=== PATIENT | male | born 1960 | race Caucasian/White ===

== ENCOUNTER 2024-07-30 14:56 | Inpatient (IN) | payer OTHER, MEDICAID, SELFPAY ==
[2024-07-30] VITALS (22 sets, daily range): BP systolic 104–144; BP diastolic 67–82; PULSE 93–107; TEMP 36.8–37.7; O2SAT 91–99; BMI 22.5; BMI 21.5
--- NOTE | 2024-07-30 13:45 | ECG_ITS ---
[facility] Test Date: 2024-07-30 Pat Name: WENDY TRINIDAD Department: Room: [facility] Gender: Male Regulatory Affairs Coordinator: : 1960 Requested By: [id number] Order Number: [id number] Reading MD: ERICK JACKSON M.D. Measurements Intervals [place] Rate: 99 P: 88 MT: 132 QRS: 72 QRSD: 96 T: 79 QT: 366 QTc: 422 Interpretive Statements 1100 Sinus rhythm 9110 normal ECG No previous ECG available for comparison Electronically Signed On 07-31-2024 16:57:58 EDT by ERICK JACKSON M.D.
--- NOTE | 2024-07-30 15:48 | ED.GENADUL1 ---
HPI HPI - General Adult General Chief complaint: Skin/Abscess/Foreign Body Time Seen by Provider: 07/30/24 14:59 Source: patient Mode of arrival: ambulance Limitations: no limitations History of Present Illness HPI narrative: Patient presents to ED for evaluation of possible altered mental status and new sacral decubitus wounds. Patient was apparently slightly altered this morning at 10 AM and they thought he may get better but he did not seem to be getting any better. They said the nurse practitioner also noticed new wounds on the buttock area and they were concerned for infection. Patient was sent over for further evaluation. Upon arrival patient is alert and oriented answering questions appropriately for the most part. Patient does have a history of lung cancer. Patient denies specific chest pain shortness of breath or abdominal pain but just states in general he has pain all over. He feels warm but he does not have a documented fever here. We did check twice. He states he feels chilled like he is cold. Patient has an indwelling Altman catheter. Related Data Home Medications ?Medication ?Instructions ?Recorded ?Confirmed ascorbic acid (vitamin C) 500 mg 500 mg PO DAILY 07/30/24 07/30/24 chewable tablet (Acerola C) cholecalciferol (vitamin D3) 10 10 mcg PO DAILY 07/30/24 07/30/24 mcg (400 unit) tablet (Delta D3) enoxaparin 40 mg/0.4 mL 40 mg subcut DAILY 07/30/24 07/30/24 subcutaneous syringe (Lovenox) gabapentin 300 mg capsule 300 mg PO TID 07/30/24 07/30/24 hydrocodone 5 mg-acetaminophen 325 1 tab PO QID PRN pain 07/30/24 07/30/24 mg tablet insulin glargine-yfgn 100 unit/mL 40 unit subcut DAILY 07/30/24 07/30/24 (3 mL) subcutaneous pen (Semglee (insulin glargine-yfgn) Pen) insulin lispro 100 unit/mL 1 sliding scale dose subcut 07/30/24 07/30/24 subcutaneous pen (Admelog SoloStar USEASDIRECTD U-100 Insulin lispro) ipratropium 0.5 mg-albuterol 3 mg 3 ml inhalation QID PRN shortness 07/30/24 07/30/24 (2.5 mg base)/3 mL nebulization of breath soln lidocaine 5 % topical patch 1 patch topical BID 07/30/24 07/30/24 (DermacinRx Lidocan) magnesium 200 mg tablet 400 mg PO BID 07/30/24 07/30/24 metformin 500 mg tablet 500 mg PO BID 07/30/24 07/30/24 nicotine 14 mg/24 hr daily 1 patch transdermal DAILY 07/30/24 07/30/24 transdermal patch (Nicoderm CQ) polyethylene glycol 3350 17 17 g PO QDAY PRN constipation 07/30/24 07/30/24 gram/dose oral powder (ClearLax) tamsulosin 0.4 mg capsule (Flomax) 0.4 mg PO DAILY 07/30/24 07/30/24 tizanidine 4 mg capsule 4 mg PO Q6H PRN muscle spasticity 07/30/24 07/30/24 Allergies Allergy/AdvReac Type Severity Reaction Status Date / Time No Known Drug Allergies Allergy Verified 07/30/24 15:00 Opioid HPI Opioid Management Most Recent Opioid Data: No Data to Display Review of Systems ROS Status of ROS 10 or more systems reviewed and unremarkable except as noted in history and below PFSH PFSH Social History Little interest or pleasure in doing things: not at all Feeling down, depressed, or hopeless: not at all Exam Narrative Exam Narrative: Time Seen: [] Vital Signs: [Per nurse's notes.] General: [Alert] Skin: [Warm, dry, no rash.] Sacral decubitus ulcer and 2 other wounds on each buttock just slightly lower than the main sacral decubitus ulcer. Stage 3 Head: [Normocephalic, atraumatic.] Neck: [Supple, trachea midline.] Eye: [Pupils are equal, round and reactive to light, extraocular movements are intact, normal conjunctiva.] Ears, nose, mouth and throat: oral mucosa moist. Cardiovascular: [Regular rate and rhythm, no murmur.] Respiratory: [Lungs are clear to auscultation, respirations are non-labored, breath sounds are equal.] Gastrointestinal: [Soft, nontender, non distended, normal bowel sounds.] Altman catheter in place MSK: 5 out of 5 muscle strength x 4 extremities no calf pain or edema Psychiatric: [Cooperative, appropriate mood & affect.] Neurological: [Alert and oriented to person, place, time, and situation, no focal neurological deficit observed.] Constitutional Vital Signs, click to edit/add: Last Vital Signs Temp 98.3 F 07/30/24 14:56 Pulse 99 H 07/30/24 14:56 Resp 18 07/30/24 14:56 BP 121/72 07/30/24 14:56 Pulse Ox 97 07/30/24 14:56 O2 Del Method Room Air 07/30/24 14:56 Course Vital Signs Vital signs: Vital Signs Temperature 98.3 F 07/30/24 14:56 Pulse Rate 99 H 07/30/24 14:56 Respiratory Rate 18 07/30/24 14:56 Blood Pressure 121/72 07/30/24 14:56 Pulse Oximetry 97 07/30/24 14:56 Oxygen Delivery Method Room Air 07/30/24 14:56 Temperature 98.3 F 07/30/24 14:56 Pulse Rate 99 H 07/30/24 14:56 Respiratory Rate 18 07/30/24 14:56 Blood Pressure 121/72 07/30/24 14:56 Pulse Oximetry 97 07/30/24 14:56 Oxygen Delivery Method Room Air 07/30/24 14:56 Medical Decision Making MDM Narrative Medical decision making narrative: Patient has not elevated lactate at 2.9. He also has gas seen in the sacral tissue area. Patient has no osteomyelitis on the sacral bone. He does have the sacral decubitus ulcer with gas extension into the tissues. Patient will need to be admitted for IV antibiotics and further care of his wound. Patient was given vancomycin IV in ED. Dr. Woods will admit the patient for further care. Patient is comfortable with care plan for admission. Differential Diagnosis Differential Diagnosis: Sepsis, sacral decubitus infection abscess, UTI Medical Records Medical records reviewed: Yes I reviewed the patient's medical records Lab Data Lab results reviewed: Yes I reviewed the patient's lab results Labs: Lab Results 07/30/24 07/30/24 Range/Units 15:00 16:10 WBC 5.4 (4.0-11.0) 10^3/uL RBC 3.44 L (4.70-6.10) 10^6/uL Hgb 10.6 L (14.0-18.0) g/dL Hct 30.9 L (42.0-54.0) % MCV 89.8 (80.0-94.0) fL MCH 30.8 (25.9-34.0) pg MCHC 34.3 (29.9-35.2) g/dL RDW 14.1 (11.0-15.0) % Plt Count 160 (150-450) 10^3/uL MPV 9.2 L (9.5-13.5) fL Neut % (Auto) 76.7 H (43.0-75.0) % Lymph % (Auto) 14.4 L (20.5-60.0) % [place] % (Auto) 5.7 (1.7-12.0) % Eos % (Auto) 0.2 L (0.9-7.0) % Baso % (Auto) 0.2 (0.2-2.0) % Neut # (Auto) 4.2 (1.4-6.5) 10^3/uL Lymph # (Auto) 0.8 L (1.2-3.8) 10^3/uL [place] # (Auto) 0.3 (0.3-0.8) 10^3/uL Eos # (Auto) 0.0 (0.0-0.7) 10^3/uL Baso # (Auto) 0.0 (0.0-0.1) 10^3/uL Abs Immat Gran (auto) 0.15 H (0.00-0.03) 10^3/uL Imm/Tot Granulo (auto) 2.8 H (0.0-0.5) % Sodium 133 L (136-145) mmol/L Potassium 4.2 (3.5-5.1) mmol/L Chloride 95 L (98-107) mmol/L Carbon Dioxide 32.7 H (21.0-32.0) mmol/L Anion Gap 9.5 BUN 18.0 (7.0-18.0) mg/dL Creatinine 0.51 L (0.70-1.30) mg/dL Est GFR ( Amer) >60 (>=60 mL/min/1.73m^2) Est GFR (Non-Af Amer) >60 (>=60 mL/min/1.73m^2) BUN/Creatinine Ratio 35.3 Glucose 177 H (74-106) mg/dL Lactate 2.9 H* (0.4-2.0) mmol/L Calcium 8.2 L (8.5-10.1) mg/dL Total Bilirubin 0.6 (0.2-1.0) mg/dL AST 21 (15-37) U/L ALT 51 (16-63) U/L Alkaline Phosphatase 90 (46-116) U/L Total Protein 5.3 L (6.4-8.2) g/dL Albumin 1.6 L (3.4-5.0) g/dL Globulin 3.7 g/dL Albumin/Globulin Ratio 0.4 Urine Color Yellow (YELLOW) Urine Clarity Sl cloudy (CLEAR) Urine pH 6.0 (5.0-9.0) Ur Specific [place] >=1.030 A (1.005-1.025) Urine Protein 100 A (NEG/TRACE) mg/dL Urine Glucose (UA) Negative (NEGATIVE) mg/dL Urine Ketones Negative (NEGATIVE) mg/dL Urine Occult Blood Large A (NEGATIVE) Urine Nitrite Positive A (NEGATIVE) Urine Bilirubin Negative (NEGATIVE) Urine Urobilinogen 1.0 (0.2-1.0) EU/dL Ur Leukocyte Esterase Small A (NEGATIVE) Urine RBC 2-5 A (0-2) #/HPF Urine WBC 50-75 A (NONE SEEN) #/HPF Ur Squamous Epith Cells Few A (NONE/RARE) #/LPF Ur Transition Epith Cell Rare A (NONE SEEN) #/LPF Urine Crystals None seen (None Seen) #/HPF Urine Bacteria Large A (NONE SEEN) #/HPF Urine Casts None seen (NONE SEEN) #/LPF Urine Mucus Trace A (NONE SEEN) Ur Culture Indicated? Yes-[facility] [place] Imaging Data CT scan - abdomen: Attestation: I have reviewed the pertinent imaging results. Discharge Plan Discharge Chief Complaint: Skin/Abscess/Foreign Body Time of Disposition Decision: 17:19 Prescriptions / Home Meds: No Action tamsulosin [Flomax] 0.4 mg capsule 0.4 mg PO DAILY gabapentin 300 mg capsule 300 mg PO TID hydrocodone-acetaminophen 5-325 mg tablet 1 tab PO QID PRN (Reason: pain) insulin lispro [Admelog SoloStar U-100 Insulin] 100 unit/mL insulin pen 1 sliding scale dose subcut USEASDIRECTD ipratropium-albuterol 0.5 mg-3 mg(2.5 mg base)/3 mL solution for nebulization 3 ml inhalation QID PRN (Reason: shortness of breath) lidocaine [DermacinRx Lidocan] 5 % adhesive patch,medicated 1 patch topical BID Rx Instructions: leave on most painful area for up to 12 hrs enoxaparin [Lovenox] 40 mg/0.4 mL syringe 40 mg subcut DAILY magnesium 200 mg tablet 400 mg PO BID metformin 500 mg tablet 500 mg PO BID nicotine [Nicoderm CQ] 14 mg/24 hr patch 24 hour 1 patch transdermal DAILY polyethylene glycol 3350 [ClearLax] 17 gram/dose powder 17 g PO QDAY PRN (Reason: constipation) insulin glargine-yfgn [Semglee(insulin glarg-yfgn)Pen] 100 unit/mL (3 mL) insulin pen 40 unit subcut DAILY tizanidine 4 mg capsule 4 mg PO Q6H PRN (Reason: muscle spasticity) Rx Instructions: do not exceed 3 doses per 24 hrs ascorbic acid (vitamin C) [Acerola C] 500 mg tablet,chewable 500 mg PO DAILY cholecalciferol (vitamin D3) [Delta D3] 10 mcg (400 unit) tablet 10 mcg PO DAILY Print Language: [place]
[2024-07-30] MEDS: VANCOMYCIN HCL 1,000 MG in 0.9 % SODIUM CHLORIDE 250 ML 250 MG IV (16:00)
[2024-07-30 16:06] LABS: Basophils Percent Auto 0.2 % (0.2-2.0); Eosinophils Percent Auto 0.2 % (0.9-7.0); Hematocrit 30.9 % (42.0-54.0); Hemoglobin 10.6 g/dL (14.0-18.0); Immature Granulocytes Abs Auto 0.15 10^3/uL (0.00-0.03); Immature Granulocytes Pct Auto 2.8 % (0.0-0.5); Lymphocytes Absolute Auto 0.8 10^3/uL (1.2-3.8); Lymphocytes Percent Auto 14.4 % (20.5-60.0); Mean Corpuscular HGB Conc 34.3 g/dL (29.9-35.2); Mean Corpuscular Hemoglobin 30.8 pg (25.9-34.0); Mean Corpuscular Volume 89.8 fL (80.0-94.0); Mean Platelet Volume 9.2 fL (9.5-13.5); Monocytes Absolute Auto 0.3 10^3/uL (0.3-0.8); Monocytes Percent Auto 5.7 % (1.7-12.0); Neutrophils Absolute Auto 4.2 10^3/uL (1.4-6.5); Neutrophils Percent Auto 76.7 % (43.0-75.0); Platelet Count 160 10^3/uL (150-450); Red Blood Count 3.44 10^6/uL (4.70-6.10); Red Cell Distribution Width 14.1 % (11.0-15.0); White Blood Count 5.4 10^3/uL (4.0-11.0)
[2024-07-30 16:18] LABS: Alanine Aminotransferase 51 U/L (16-63); Albumin Globulin Ratio 0.4; Albumin Level 1.6 g/dL (3.4-5.0); Alkaline Phosphatase 90 U/L (46-116); Anion Gap 9.5; Aspartate Amino Transferase 21 U/L (15-37); BUN Creatinine Ratio 35.3; Bilirubin Total 0.6 mg/dL (0.2-1.0); Calcium 8.2 mg/dL (8.5-10.1); Carbon Dioxide 32.7 mmol/L (21.0-32.0); Chloride 95 mmol/L (98-107); Estimated GFR (African America >60 (>=60 mL/min/1.73m^2); Estimated GFR (Non-African Ame >60 (>=60 mL/min/1.73m^2); Globulin 3.7 g/dL; Glucose 177 mg/dL (74-106); Potassium 4.2 mmol/L (3.5-5.1); Sodium 133 mmol/L (136-145); Total Protein 5.3 g/dL (6.4-8.2)
[2024-07-30 16:19] LABS: Bilirubin Urine NEGATIVE (NEGATIVE); Blood Urine LARGE (NEGATIVE); Clarity Urine SL CLOUDY (CLEAR); Color Urine YELLOW (YELLOW); Glucose Urine UA NEGATIVE (NEGATIVE); Ketones Urine NEGATIVE (NEGATIVE); Leukocyte Esterase Urine SMALL (NEGATIVE); Nitrite Urine POSITIVE (NEGATIVE); Protein Urine 100 mg/dL (NEG/TRACE); Specific Gravity Urine >=1.030 (1.005-1.025)
[2024-07-30 16:28] LABS: Urine Microscopic Indicated YES
[2024-07-30 16:30] LABS: Bacteria Urine LARGE #/HPF (NONE SEEN); Mucus Urine TRACE (NONE SEEN); WBC Urine 50-75 #/HPF (NONE SEEN)
[2024-07-30 16:31] LABS: Cast Seen? NONE SEEN #/LPF (NONE SEEN); Crystals Seen? None Seen #/HPF (None Seen); Squamous Epithelial Cell Urine FEW #/LPF (NONE/RARE); Transitional Epi Cells Urine RARE #/LPF (NONE SEEN); Urine Culture Indicated YES-FRMC
[2024-07-30 16:37] LABS: Lactate/Lactic Acid 2.9 mmol/L (0.4-2.0)
--- NOTE | 2024-07-30 18:01 | PHOTOS ---
left lower buttock
--- NOTE | 2024-07-30 18:02 | RESP.PFTBD ---
Pulmonary Function Tests Test Type: Spirometry Predicted Measured %Predicted Measured Post-Bronchodilator % Predicted Post-Bronchodilator % Change FVC FEV1 FEV1/FVC FEV 25% FEV 50% FEV 75% FEV 25 - 75% PEF FIVC Lung Volumes Predicted Measured % Predicted Measured Post-Bronchodilator % Pedicted Post-Bronchodilator % Change VC TLC RV RV/TLC FRC PL FRC N2 ERV IC Airway Resistance Predicted Measured % Predicted Raw Total sGAW Diffusion Predicted Measured % Predicted DLCO DL Adj DLCO/VA DL/VA Adj
[2024-07-30 18:31] LABS: C Reactive Protein 10.78 mg/dL (<=0.50)
[2024-07-30 18:37] LABS: Lactate/Lactic Acid 1.4 mmol/L (0.4-2.0)
[2024-07-30 18:43] LABS: Erythrocyte Sedimentation Rate 53 mm/hr (<=20)
--- NOTE | 2024-07-30 20:36 | P.HP_ITS ---
HPI H&P: HPI History of Present Illness Chief complaint: INFECTED SACRAL DECUB, AMS, WEAKNESS, UTI Narrative: Presented to the emergency room from his rehabilitation facility for increasing fatigue and lethargy some altered mental status, in ER found to have sacral decubitus with air infiltration and evidence for sepsis Opioid HPI Opioid Management Most Recent Pain and Opioid Data: Last ORT Total Score 0 07/30/24 18:12 07/30/24 Last ORT Risk Category Low Risk 07/30/24 18:12 07/30/24 Review of Systems ROS Status of ROS 10 or more systems reviewed and unremark able except as noted in history and below [facility] Medical History (Updated 07/30/24 @ 18:50 by Ghazal Garduno) Depression ?F32.A - Depression, unspecified (ICD-10) Neuropathy ?G62.9 - Polyneuropathy, unspecified (ICD-10) Urinary retention ?R33.9 - Retention of urine, unspecified (ICD-10) Diabetes ?E11.9 - Type 2 diabetes mellitus without complications (ICD-10) Family History (Updated 07/30/24 @ 18:45 by Ghazal Garduno) Mother Family history of CHF (congestive heart failure) Family history of cancer Social History (Updated 07/30/24 @ 18:46 by Ghazal Garduno) Within the past year, how often did you have a drink containing alcohol: never Score interpretation: A score less than 4 is consistent with normal alcohol consumption. Smoking status: Former smoker Non-prescribed substance use: denies use Previous occupational history: disabled Highest level of school completed/degree received: 7th grade Are you now , , , , never or living with a partner: never Little interest or pleasure in doing things: not at all Feeling down, depressed, or hopeless: not at all Meds Home Medications and Allergies Home Medications ?Medication ?Instructions ?Recorded ?Confirmed ?Type ascorbic acid (vitamin C) 500 mg 500 mg PO DAILY 07/30/24 07/30/24 History chewable tablet (Acerola C) cholecalciferol (vitamin D3) 10 10 mcg PO DAILY 07/30/24 07/30/24 History mcg (400 unit) tablet (Delta D3) duloxetine 60 mg capsule,delayed 60 mg PO .QD 07/30/24 07/30/24 History release enoxaparin 40 mg/0.4 mL 40 mg subcut DAILY 07/30/24 07/30/24 History subcutaneous syringe (Lovenox) gabapentin 300 mg capsule 300 mg PO TID 07/30/24 07/30/24 History hydrocodone 5 mg-acetaminophen 325 1 tab PO QID PRN pain 07/30/24 07/30/24 History mg tablet insulin glargine-yfgn 100 unit/mL 40 unit subcut DAILY 07/30/24 07/30/24 History (3 mL) subcutaneous pen (Semglee (insulin glargine-yfgn) Pen) insulin lispro 100 unit/mL 1 sliding scale dose subcut 07/30/24 07/30/24 History subcutaneous pen (Admelog SoloStar USEASDIRECTD U-100 Insulin lispro) ipratropium 0.5 mg-albuterol 3 mg 3 ml inhalation QID PRN shortness 07/30/24 07/30/24 History (2.5 mg base)/3 mL nebulization of breath soln lidocaine 5 % topical patch 1 patch topical BID 07/30/24 07/30/24 History (DermacinRx Lidocan) magnesium 200 mg tablet 400 mg PO BID 07/30/24 07/30/24 History metformin 500 mg tablet 500 mg PO BID 07/30/24 07/30/24 History nicotine 14 mg/24 hr daily 1 patch transdermal DAILY 07/30/24 07/30/24 History transdermal patch (Nicoderm CQ) polyethylene glycol 3350 17 17 g PO QDAY PRN constipation 07/30/24 07/30/24 History gram/dose oral powder (ClearLax) tamsulosin 0.4 mg capsule (Flomax) 0.4 mg PO DAILY 07/30/24 07/30/24 History tizanidine 4 mg capsule 4 mg PO Q6H PRN muscle spasticity 07/30/24 07/30/24 History Allergies Allergy/AdvReac Type Severity Reaction Status Date / Time No Known Drug Allergies Allergy Verified 07/30/24 15:00 Exam Constitutional Vital Signs, click to edit/add: Last Vital Signs Temp 99.9 F 07/30/24 20:30 Pulse 107 H 07/30/24 20:30 Resp 19 07/30/24 20:30 BP 121/67 07/30/24 20:30 Pulse Ox 93 L 07/30/24 20:30 O2 Del Method Room Air 07/30/24 20:30 Documenting provider has reviewed patient's vital signs: yes Common normals: no apparent distress Chest Common normals: inspection of chest normal Respiratory Common normals: normal respiratory effort, no retractions and clear to auscultation bilaterally Cardio Common normals: regular rate and regular rhythm Back & Pelvis Other: Sacral decubitus, see pictures Neuro Common normals: oriented x3, CN's II-XII intact bilaterally, moves all extremities and no focal motor deficits Other: Right-sided facial weakness secondary to previous skull fracture Results Labs Labs: Short CBC 07/30/24 Range/Units 15:00 WBC 5.4 (4.0-11.0) 10^3/uL Hgb 10.6 L (14.0-18.0) g/dL Hct 30.9 L (42.0-54.0) % Plt Count 160 (150-450) 10^3/uL BMP 07/30/24 15:00 Sodium 133 L Potassium 4.2 Chloride 95 L Carbon Dioxide 32.7 H BUN 18.0 Creatinine 0.51 L Glucose 177 H Calcium 8.2 L Liver Function 07/30/24 Range/Units 15:00 Total Bilirubin 0.6 (0.2-1.0) mg/dL AST 21 (15-37) U/L ALT 51 (16-63) U/L Alkaline Phosphatase 90 (46-116) U/L Albumin 1.6 L (3.4-5.0) g/dL Urine 07/30/24 Range/Units 16:10 Urine Color Yellow (YELLOW) Urine Clarity Sl cloudy (CLEAR) Urine pH 6.0 (5.0-9.0) Ur Specific [place] >=1.030 A (1.005-1.025) Urine Protein 100 A (NEG/TRACE) mg/dL Urine Glucose (UA) Negative (NEGATIVE) mg/dL Assessment and Plan Assessment and Plan (1) AMS (altered mental status): (2) Acute UTI: (3) Decubitus ulcer of sacral region, stage 3: (4) Cellulitis: (5) Neuropathy: (6) Depression: (7) Diabetes: Plan Admission findings: Sinus tachycardia, respiratory distress, normal white blood cell count but left shift consistent with bacterial process and lactic acidosis consistent with severe sepsis secondary to acute UTI and decubitus with subcutaneous air as a complication of diabetes mellitus and recent treatment for lung cancer resulting in immune deficiency Severe sepsis secondary to UTI and sacral decubitus with air infiltration, complication of diabetes and immune deficiency from lung cancer [id number]-tzrbl-[id number] antibiotics, blood cultures and wound cultures and urine cultures pending Poorly controlled diabetes mellitus-insulin sliding scale Altered mental status secondary to above-monitor Neuropathic pain-continue with home medications COPD-continue with aerosol treatments Hypomagnesemia-supplement BPH-continue with home medications Admission status: Patient admitted with severe sepsis secondary to UTI and sacral decubitus with evidence for cellulitis with a infiltration complication of diabetes mellitus as well as immune deficiency from lung cancer treatment, medically necessary treatment will span 2 midnights. Inpatient status Urinary Catheter Management Urinary Catheter Management Urethral: Cath placed during this visit: no
[2024-07-30 21:22] LABS: Glucometer 244 mg/dL (74-106)
[2024-07-30] MEDS: ENSURE HP 237 ML LIQUID PO (22:24)
[2024-07-30] MEDS: GABAPENTIN 300 MG CAPSULE PO (22:25)
[2024-07-30] MEDS: PROSTAT 15 GM PROTEIN/100 CAL 30 ML LIQUID PACKET PO (22:25)
[2024-07-30] MEDS: PIPERACILLIN SODIUM/TAZOBACTAM 3.375 GM in 0.9 % SODIUM CHLORIDE 50 ML IV (22:26)
[2024-07-30] MEDS: INSULIN ASPART 300 UNIT/3 ML PEN SUBQ (22:26)
[2024-07-30] MEDS: JUVEN PACKET 1 PACKET PO (22:26)
[2024-07-31] VITALS (10 sets, daily range): BP systolic 90–119; BP diastolic 58–75; PULSE 91–111; TEMP 36.4–37.7; O2SAT 87–96
[2024-07-31] MEDS: PIPERACILLIN SODIUM/TAZOBACTAM 3.375 GM in 0.9 % SODIUM CHLORIDE 50 ML IV ×3 (04:39→21:41)
[2024-07-31] MEDS: VANCOMYCIN HCL 1,000 MG in 0.9 % SODIUM CHLORIDE 250 ML 250 MG IV ×2 (04:39→17:25)
[2024-07-31 06:14] LABS: Basophils Percent Auto 0.4 % (0.2-2.0); Hematocrit 31.3 % (42.0-54.0); Hemoglobin 10.9 g/dL (14.0-18.0); Immature Granulocytes Abs Auto 0.29 10^3/uL (0.00-0.03); Immature Granulocytes Pct Auto 5.3 % (0.0-0.5); Lymphocytes Absolute Auto 0.5 10^3/uL (1.2-3.8); Lymphocytes Percent Auto 9.4 % (20.5-60.0); Mean Corpuscular HGB Conc 34.8 g/dL (29.9-35.2); Mean Corpuscular Hemoglobin 31.5 pg (25.9-34.0); Mean Corpuscular Volume 90.5 fL (80.0-94.0); Monocytes Absolute Auto 0.3 10^3/uL (0.3-0.8); Monocytes Percent Auto 4.6 % (1.7-12.0); Neutrophils Absolute Auto 4.4 10^3/uL (1.4-6.5); Neutrophils Percent Auto 80.3 % (43.0-75.0); Platelet Count 158 10^3/uL (150-450); Red Blood Count 3.46 10^6/uL (4.70-6.10); Red Cell Distribution Width 14.2 % (11.0-15.0); White Blood Count 5.4 10^3/uL (4.0-11.0)
--- NOTE | 2024-07-31 06:34 | P.PN_ITS ---
Progress Note: Subjective Subjective Interval history: Patient appears much worse than previous day, somewhat more labored breathing definitely more of a cough this morning than yesterday. Exam Constitutional Vital Signs, click to edit/add: Last Vital Signs Temp 97.6 F 07/31/24 04:00 Pulse 93 H 07/31/24 04:00 Resp 18 07/31/24 04:00 BP 90/60 07/31/24 04:00 Pulse Ox 92 L 07/31/24 04:50 O2 Del Method Nasal Cannula 07/31/24 04:50 O2 Flow Rate 2 07/31/24 04:50 Documenting provider has reviewed patient's vital signs: yes Common normals: apparent distress (Moderate respiratory distress) Chest Common normals: inspection of chest normal Respiratory Common normals: abnormal respiratory effort (Moderate respiratory distress) Auscultation: rhonchi and diminished lung sounds Cardio Common normals: regular rate and regular rhythm GI Common normals: Normal to inspection, nondistended, normoactive bowel sounds present Back & Pelvis Other: Significant sacral decubitus, see pictures Extremity Common normals: normal to inspection and no clubbing, cyanosis or edema Progress Note: Objective Labs Labs: Short CBC 07/30/24 07/31/24 Range/Units 15:00 05:59 WBC 5.4 5.4 (4.0-11.0) 10^3/uL Hgb 10.6 L 10.9 L (14.0-18.0) g/dL Hct 30.9 L 31.3 L (42.0-54.0) % Plt Count 160 158 (150-450) 10^3/uL BMP 07/30/24 15:00 Sodium 133 L Potassium 4.2 Chloride 95 L Carbon Dioxide 32.7 H BUN 18.0 Creatinine 0.51 L Glucose 177 H Calcium 8.2 L Liver Function 07/30/24 Range/Units 15:00 Total Bilirubin 0.6 (0.2-1.0) mg/dL AST 21 (15-37) U/L ALT 51 (16-63) U/L Alkaline Phosphatase 90 (46-116) U/L Albumin 1.6 L (3.4-5.0) g/dL Urine 07/30/24 Range/Units 16:10 Urine Color Yellow (YELLOW) Urine Clarity Sl cloudy (CLEAR) Urine pH 6.0 (5.0-9.0) Ur Specific [place] >=1.030 A (1.005-1.025) Urine Protein 100 A (NEG/TRACE) mg/dL Urine Glucose (UA) Negative (NEGATIVE) mg/dL Progress Note: A&P Assessment and Plan (1) AMS (altered mental status): (2) Acute UTI: (3) Decubitus ulcer of sacral region, stage 3: (4) Cellulitis: (5) Neuropathy: (6) Depression: (7) Diabetes: Plan Admission findings: Sinus tachycardia, respiratory distress, normal white blood cell count but left shift consistent with bacterial process and lactic acidosis consistent with severe sepsis secondary to acute UTI and decubitus with subcutaneous air as a complication of diabetes mellitus and recent treatment for lung cancer resulting in immune deficiency Severe sepsis due to strep pyogenes secondary to UTI and sacral decubitus with air infiltration, complication of diabetes and immune deficiency from lung cancer treatment-white blood cell count still not elevated, but still with left shift consistent with a bacterial process, continue with current antibiotic regiment, blood culture, wound culture, urine culture pending, discussed case with wound and recommending possible surgical intervention, discussed with patient if that is his preference, we will arrange transfer at that time..... Blood culture positive for strep pyogenes-check echocardiogram for valvular vegetations Acute respiratory distress with acute hypoxia requiring supplemental oxygen, worse this morning, check chest x-ray, also check HST and BNP but patient has no history of heart disease per patient Poorly controlled diabetes mellitus-insulin sliding scale Altered mental status secondary to above-monitor Neuropathic pain-continue with home medications COPD-continue with aerosol treatments Hypomagnesemia-supplement Iron deficiency anemia-improved today BPH-continue with home medications Admission status: Patient admitted with severe sepsis secondary to UTI and sacral decubitus with evidence for cellulitis with a infiltration complication of diabetes mellitus as well as immune deficiency from lung cancer treatment, medically necessary treatment will span 2 midnights. Inpatient status Urinary Catheter Management Urinary Catheter Management Urethral: Cath placed during this visit: no
[2024-07-31 06:51] LABS: Alanine Aminotransferase 49 U/L (16-63); Albumin Globulin Ratio 0.5; Albumin Level 1.7 g/dL (3.4-5.0); Alkaline Phosphatase 84 U/L (46-116); Anion Gap 8.9; Aspartate Amino Transferase 24 U/L (15-37); Bilirubin Total 0.6 mg/dL (0.2-1.0); C Reactive Protein 11.49 mg/dL (<=0.50); Calcium 8.1 mg/dL (8.5-10.1); Carbon Dioxide 31.6 mmol/L (21.0-32.0); Chloride 99 mmol/L (98-107); Estimated GFR (African America >60 (>=60 mL/min/1.73m^2); Estimated GFR (Non-African Ame >60 (>=60 mL/min/1.73m^2); Globulin 3.6 g/dL; Glucose 71 mg/dL (74-106); Magnesium 1.7 mg/dL (1.8-2.4); Potassium 3.5 mmol/L (3.5-5.1); Sodium 136 mmol/L (136-145); Total Protein 5.3 g/dL (6.4-8.2)
[2024-07-31 07:14] LABS: A. calcoaceticus-baumannii Cpx NOT DETECTED (NOT DETECTE); Bacteroides fragilis NOT DETECTED (NOT DETECTE); Candida albicans NOT DETECTED (NOT DETECTE); Candida auris NOT DETECTED (NOT DETECTE); Candida glabrata NOT DETECTED (NOT DETECTE); Candida krusei NOT DETECTED (NOT DETECTE); Candida parapsilosis NOT DETECTED (NOT DETECTE); Candida tropicalis NOT DETECTED (NOT DETECTE); Cryptococcus neoformans/gattii NOT DETECTED (NOT DETECTE); Enterobacter cloacae complex NOT DETECTED (NOT DETECTE); Enterobacterales NOT DETECTED (NOT DETECTE); Enterococcus faecalis NOT DETECTED (NOT DETECTE); Enterococcus faecium NOT DETECTED (NOT DETECTE); Haemophilus influenzae NOT DETECTED (NOT DETECTE); Klebsiella aerogenes NOT DETECTED (NOT DETECTE); Klebsiella pneumoniae group NOT DETECTED (NOT DETECTE); Listeria monocytogenes NOT DETECTED (NOT DETECTE); Neisseria meningitidis NOT DETECTED (NOT DETECTE); Proteus spp. NOT DETECTED (NOT DETECTE); Pseudomonas aeruginosa NOT DETECTED (NOT DETECTE); Salmonella spp. NOT DETECTED (NOT DETECTE); Serratia marcescens NOT DETECTED (NOT DETECTE); Staphylococcus epidermidis NOT DETECTED (NOT DETECTE); Staphylococcus lugdunensis NOT DETECTED (NOT DETECTE); Staphylococcus spp. NOT DETECTED (NOT DETECTE); Stenotrophomonas maltophilia NOT DETECTED (NOT DETECTE); Streptococcus agalactiae NOT DETECTED (NOT DETECTE); Streptococcus pneumoniae NOT DETECTED (NOT DETECTE)
[2024-07-31 07:37] LABS: Glucometer 220 mg/dL (74-106)
[2024-07-31] MEDS: INSULIN ASPART 300 UNIT/3 ML PEN SUBQ ×2 (08:05→12:12)
--- NOTE | 2024-07-31 08:19 | CM.NOTE ---
Rounds made with Dr. Woods, no discharge today. Pt inpatient status. Wound to consult for decubitus ulcer and further recommendations. Pt comes from [facility], pt at this time states he will not go back to [facility]. Case Management will update SW.
[2024-07-31 08:36] LABS: Source BLOOD
[2024-07-31 08:37] LABS: Streptococcus pyogenes DETECTED (NOT DETECTE); Streptococcus spp. DETECTED (NOT DETECTE)
--- NOTE | 2024-07-31 09:15 | XR_ITS ---
The [address] [address] Patient Name: WENDY TRINIDAD MRN: [id number] date: 1960 Sex: M Assigned Patient Location: [place] Current Patient Location: [place] Accession/Order Number: [id number] Exam Date: 07/31/2024 11:16 Report Date: 07/31/2024 11:25 At the request of: ZELDA ALEXANDER MD Procedure: XR chest 1V PORTABLE AP ERECT CHEST and 48 hours CLINICAL HISTORY: Shortness of breath with hypoxia COMPARISON: None The heart is within normal limits for size. There is soft tissue asymmetry at the left hilum. There are no priors to assess chronicity. There may be subtle asymmetric reticular nodular change at the lower lung on the right. There is no focal consolidation. Nipple shadows are visualized. No sizable effusion or pneumothorax are seen. There is endplate spurring at the spine. There is also some degenerative change at the shoulders. XR/XR chest 1V IMPRESSION: POTENTIAL SUBTLE PARENCHYMAL CHANGE ON THE RIGHT. LEFT HILAR ASYMMETRY. Impression dictated by: Skylar Traylor M.D.07/31/2024 11:25 AM Dictation Location: [place] [address] Electronically authenticated by: [id number] Y Date: 07/31/2024 11:25
[2024-07-31] MEDS: MAGNESIUM OXIDE 400 MG TABLET PO ×2 (09:21→21:41)
[2024-07-31] MEDS: ENOXAPARIN SODIUM 40 MG/0.4 ML SYRINGE SUBQ (09:22)
[2024-07-31] MEDS: INSULIN GLARGINE 300 UNIT/3 ML INSULN.PEN 40 UNIT SQ (09:24)
--- NOTE | 2024-07-31 09:56 | W.PM.WC_ITS ---
Wound Consult Note Assessment and Plan (1) AMS (altered mental status): (2) Acute UTI: (3) Decubitus ulcer of sacral region, stage 3: Reason for Consult: unstageable ulcers to sacral, bilateral ischial Assessment and Plan: Consulted to evaluate and treat patient with reported new onset of sacral and ischial ulcers. Patient reports ulcers are new, only within the past few days, that he is aware of. Per the ER note, this sounds to be the case. Patient states I've never been this sick He reports he is very cold and requests to stay covered up as much as possible during assessment. He is alert but somewhat disoriented as to place, thinking he is at [facility]. Patient cooperative of skin assessment. His heels, elbows, ears, and back of head are intact. Area of concern is the sacral area as well as smaller ul cerations to bilateral ischium. See wound assessment below. Spoke with Angel Rosa RNvice president of brand management regarding plan of care for patient. Recommend general surgery consult if treatment of ulcers is to be aggressive. Will start topical treatment of dakin's solution daily as well as air mattress overlay and repositioning frequently. Please call [phone] with any questions or concerns. Lance Pittman RN, CWON (4) Cellulitis: (5) Neuropathy: (6) Depression: (7) Diabetes: Wound Assessment Wound Sacrum: Wound Type: Pressure Injury Wound Staging: Unstageable Length: 14 Width: 13 Depth: 0 Wound Bed Appearance: Garcia, Slough, Eschar, Peeling Skin and Necrotic Percentage Granulated: 0 Percentage Slough: 10 Percentage of Eschar (Black): 80 Percentage of Eschar (Garcia): 10 Wound Margins Description: Indistinct Surrounding Tissue Appearance: Kila and Macerated Surrounding Tissue Temperature: warm Drainage Description: Purulent (bloody, serosanguineous) Drainage Amount: Large Drainage Odor: Foul Odor Dressing Status: Soiled (will have bedside nurse change when dakins available) right ischium: Wound Type: Pressure Injury Wound Staging: Unstageable Length: 5.5 Width: 3 Depth: 0 Wound Bed Appearance: Yellow, Slough and Necrotic Percentage Granulated: 0 Percentage Slough: 50 Percentage of Eschar (Black): 50 Wound Margins Description: Indistinct Surrounding Tissue Appearance: Kila Surrounding Tissue Temperature: warm Drainage Description: Serosanguineous (bloody) Drainage Amount: Moderate Drainage Odor: Slight Odor Dressing Status: Soiled (dressing to be changed by bedside nurse when dakins available) left ischium: Wound Type: Pressure Injury Wound Staging: Unstageable Length: 1.8 Width: 0.5 Depth: 0 Wound Bed Appearance: Yellow Percentage Slough: 100 Wound Margins Description: Well Defined Surrounding Tissue Appearance: Kila Surrounding Tissue Temperature: warm Drainage Amount: None Drainage Odor: No Odor Dressing Status: Open to Air (nurse will apply dakins solution dressing when available)
--- NOTE | 2024-07-31 10:20 | CA_ITS ---
Patient Name: WENDY TRINIDAD MR#: [id number] : 1960 Exam Date: 07/31/2024 Ordering Doctor: DR Dex Woods . ECHOCARDIOGRAM REPORT PROCEDURE: CA ECHO DOPPLER COMPLETE INDICATIONS: Possible Valvular vegitations, COPD, diabetes COMPARISON: None. DESCRIPTION: COMPLETE ECHOCARDIOGRAM Real-time transthoracic echocardiography with 2D, M-mode, spectral and color flow Doppler performed. QUALITY: Technical quality was good. LEFT VENTRICLE: Normal chamber size. Normal left ventricular wall thickness. Normal left ventricle systolic function without wall motion abnormalities. LV EF: Normal left ventricular ejection fraction, 65% DIASTOLIC: Normal ATRIAL SEPTUM: Appears intact LEFT ATRIUM: Normal chamber size. RIGHT ATRIUM: Normal chamber size. RIGHT VENTRICLE: Normal chamber size. TRICUSPID VALVE: Normal mobility and thickness. No vegetations are present. No stenosis with no regurgitation. MITRAL VALVE: Normal mobility and thickness. No vegetations are present. No evidence of mitral valve stenosis. There is no mitral annular calcification. No mitral regurgitation. AORTIC VALVE: Aortic valve was not well visualized on parasternal short axis view. No visible sclerosis. Normal leaflet mobility. No obvious vegetations are present. No evidence of aortic valve stenosis. No aortic regurgitation. AORTIC ROOT: Normal diameter and appearance. PULMONIC VALVE: Not well visualized. No stenosis. No regurgitation. PERICARDIUM: No evidence of pericardial effusion. IVC: Collapes with inspirations. PLEURA: CONCLUSION: Normal left ventricle cavity size, wall thickness and systolic function without wall motion abnormalities, EF 65% Normal LV diastolic function Normal right ventricle size and function No significant valvular abnormalities No obvious vegetation on cardiac valves, but not all of the valves were well visualized. If high clinical suspicion of endocarditis, consider [facility] Adult Echocardiography Procedure Report Left Ventricle LVEDD (3.7 - 5.6 cm): 3.43 cm LVESD (2.2 - 4.0 cm): 2.79 cm LVIVS thickness (0.6 - 1.2 cm): 1.03 cm LVPW thickness (0.5 - 1.0 cm): 0.90 cm e': 0.10 m/s E - e': 7.36 LVOT Max Gradient: 7.00 mm[Hg] LVOT Area (cm2): 1.32 m/s Peak Velocity (LVOT): 1.32 m/s Mean Velocity (LVOT): 0.72 m/s LVOT Diameter 1.67 cm Left Ventricular Ejection Fraction: Left Atrium LA Volume Index (2D A2C): Left Atrium Systolic Dimension: Mitral Valve MV E to A Ratio: 0.81 MV Max Gradient: MV Mean Gradient: Mitral Valve A-Wave Peak Velocity: 0.93 m/s Mitral Valve E-Wave Peak Velocity: 0.75 m/s Cardiovascular Orifice Area: Right Ventricle RV Internal Diastolic Dimension: Aorta AO Root Diam: 3.02 cm Ascending Ao Diam: Aortic Valve AoV Area (Peak Jone): 2.09 cm2, 2.09 cm2 AoV Area (VTI): 2.00 cm2, 2.00 cm2 Deceleration [place]: Pressure Half-Time: Peak Velocity(Antegrade Flow): 1.39 m/s Peak Gradient(Antegrade Flow): 7.78 mm[Hg] Mean Velocity(Antegrade Flow): 0.94 m/s Mean Gradient(Antegrade Flow): 4.04 mm[Hg] Velocity Time Integral: 20.67 cm Tricuspid Valve Peak Velocity (Regurgitant Flow): Peak Velocity: Pulmonic Valve Mean Gradient: Mean Velocity: Peak Velocity: Peak Gradient: Right Atrium Right Atrium Systolic Pressure: 23.19 ml, 23.19 ml Dictated by: Jagdeep Nguyen MD on 07/31/2024 at 15:51 Approved by: Jagdeep Nguyen MD on 07/31/2024 at 16:04
--- NOTE | 2024-07-31 10:31 | PC.NURSE ---
See narrative on wound care
[2024-07-31 10:45] LABS: Troponin I High Sensitivity 13.4 pg/mL (4.0-76.1)
[2024-07-31] MEDS: SODIUM HYPOCHLORITE HALF STRENGTH (0.25%) 473 ML BOTTLE 30 ML TOPICAL (10:57)
[2024-07-31 11:35] LABS: Glucometer 157 mg/dL (74-106)
--- NOTE | 2024-07-31 11:36 | PC.NURSE ---
1100 pt discussed with staff his wishes to go home with hospice, social media manager notified. pt educated on wound care and air mattress. positioned to his right side. large wound on left buttock and left ischial tuberosity noted to have eschar, see wound photos from 07/30. Noted seropurulent drainage from wound edges, noted foul odor, pt. denies pain during wound care. Wound irrigated with normal saline, surrounding skin cleansed with soap and water, skin prep applied to intact skin, 4x4s fluffed wet to dry with dakins solution applied to wound covered with ABD and secured with tape. Noted small non draining open area on scrotum. Air mattress applied, patient positioned to comfort on right side. e
--- NOTE | 2024-07-31 13:50 | SWNOTE1 ---
Prior to seeing pt, LUPILLO spoke with nurse and pt has decided he does not want to be transferred for surgery for his ulcer and he wants to go home and be with his mother and pass away. Pt would like hospice. SW stopped in to speak with pt to discuss dc needs. Pt voiced he is ready to roll out of here. SW asked pt if he would like to speak with hospice and get signed on to hospice so they can assist in the home. Pt is in agreement,. SW let him know they can assist with hospital bed, oxygen, and any other DME needs in the home. SW also stated they can be extra help in the home as well. SW asked if he spoke to his mother about this? Pt lives with his mother. Pt stated he had. SW asked permission to call his mother, he was alright with this. LUPILLO asked pt if he had preference on hospice agencies? Pt stated he went through this with his dad, but no preference. SW provided pt with list of hospice agencies, still no preference. SW to reach out to [facility] as they respond quickly and pt is ready to go. LUPILLO messaged Lorne from [place]. Kristen messaged back that she could be there in about 45 mins. LUPILLO to send information to [place] office of [facility]. Referral sent to [facility]. Referral included face sheet, ED note, H&P, provider notes, case management report, wound consult, nursing notes, diagnostic imaging, med list, and PT/OT notes.
--- NOTE | 2024-07-31 14:00 | SWNOTE1 ---
SW also faxed over hospice order.
--- NOTE | 2024-07-31 14:14 | SWNOTE1 ---
Kristen from [facility] is here and will be going in to see patient.
[2024-07-31] MEDS: IPRATROPIUM/ALBUTEROL SULFATE 3 ML AMPUL.NEB IH (16:05)
--- NOTE | 2024-07-31 16:05 | SWNOTE1 ---
LUPILLO stopped back in room. Pt's son was on phone with Dr. Woods in the hallway. Pt's mother and another family member in room speaking to Kristen from [facility]. Pt and family have decided to move forward with surgery. Pt's son came in room and voiced doctor was going to work on transfer. Kristen provided pt and family with her card and let them know to contact her anytime and if there are any needs after surgery. LUPILLO updated nurse with the plan of transfer as well.
[2024-07-31 16:48] LABS: Glucometer 48 mg/dL (74-106)
[2024-07-31 16:48] LABS: Glucometer 64 mg/dL (74-106)
--- NOTE | 2024-07-31 19:09 | P.DS_ITS ---
DS: Providers Provider Date of admission: 07/30/24 17:49 Primary care physician: MINI ROJAS Consults: 07/30/24 Consult to Dietitian Routine Reason for consultation: weight loss Has provider been notified: Yes 07/30/24 18:07 Consult to Pharmacy Routine Consulting Provider: Reason for consultation: Please [place] me when Med Rec is Updated Has provider been notified: No Occupational Therapy Eval and Treat Routine Reason for consultation: Only if needed for Rehab Has provider been notified: No Physical Therapy Eval and Treat Routine Reason for consultation: Eval and Treat Has provider been notified: No 07/30/24 18:14 Consult to Construction Or Leak Gang Laborer Routine Reason for consult:: Mcfp Other reason:: wants a different place Consult to Wound Care Routine Consulting Provider: Lance Pittman Reason for consultation: sacral decubitus Has provider been notified: No 07/31/24 Consult to Hospice Routine Reason for consultation: lung cancer DS: Diagnosis Discharge Diagnosis (1) AMS (altered mental status): (2) Acute UTI: (3) Decubitus ulcer of sacral region, stage 3: (4) Cellulitis: (5) Neuropathy: (6) Depression: (7) Diabetes: Plan Admission findings: Sinus tachycardia, respiratory distress, normal white blood cell count but left shift consistent with bacterial process and lactic acidosis consistent with severe sepsis secondary to acute UTI and decubitus with subcutaneous air as a complication of diabetes mellitus and recent treatment for lung cancer resulting in immune deficiency Severe sepsis due to strep pyogenes secondary to UTI and sacral decubitus with air infiltration, complication of diabetes and immune deficiency from lung cancer treatment-white blood cell count still not elevated, but still with left shift consistent with a bacterial process, continue with current antibiotic regiment, blood culture, wound culture, urine culture pending, discussed case with wound and recommending possible surgical intervention, discussed with patient if that is his preference, we will arrange transfer at that time..... Blood culture positive for strep pyogenes-check echocardiogram for valvular vegetations Acute respiratory distress with acute hypoxia requiring supplemental oxygen, worse this morning, check chest x-ray, also check HST and BNP but patient has no history of heart disease per patient Poorly controlled diabetes mellitus-insulin sliding scale Altered mental status secondary to above-monitor Neuropathic pain-continue with home medications COPD-continue with aerosol treatments Hypomagnesemia-supplement Iron deficiency anemia-improved today BPH-continue with home medications Admission status: Patient admitted with severe sepsis secondary to UTI and sacral decubitus with evidence for cellulitis with a infiltration complication of diabetes mellitus as well as immune deficiency from lung cancer treatment, medically necessary treatment will span 2 midnights. Inpatient status DS: Summary Hospital Course Hospital Course: Evaluated in the emergency room after being cared for at a extended care facility, found to have altered mental status and increasing drainage from his sacral decubitus, in ER found to have Sinus tachycardia, respiratory distress, normal white blood cell count but left shift consistent with bacterial process and lactic acidosis consistent with severe sepsis secondary to acute UTI and decubitus with subcutaneous air as a complication of diabetes mellitus and rec ent treatment for lung cancer resulting in immune deficiency. Blood culture did mill turner positive for strep pyogenes, chest x-ray showed possible right lower lobe pneumonia today as well, did have some more hypoxia's morning but this afternoon when I saw him he looks much improved from that standpoint, urine culture is still pending blood cultures are pending, wound cultures are pending, lactic acidosis was improving, as hyponatremia is improved to normal, CRP still significant elevation with this mild respiratory distress this morning we obtained a BNP and troponin that was negative, echocardiogram was obtained secondary to the strep pyogenes and showed no valvular vegetations obviously, thin dwight so should be pretty accurate results. Discussed with general surgery not available for the next several days, general surgical evaluation may help to facilitate improved wound healing, so patient will be transferred to [place] under the care of Dr. Rosenbaum, medication status. Follow-up with PCP postdischarge Time Spent with Patient Time attestation: Total time spent providing and/or coordinating discharge services: Exam Constitutional Vital Signs, click to edit/add: Last Vital Signs Temp 98.9 F 07/31/24 19:00 Pulse 106 H 07/31/24 19:00 Resp 24 H 07/31/24 19:00 BP 96/60 07/31/24 19:00 Pulse Ox 89 L 07/31/24 19:00 O2 Del Method Nasal Cannula 07/31/24 19:00 O2 Flow Rate 2 07/31/24 19:00 Documenting provider has reviewed patient's vital signs: yes Common normals: apparent distress (Moderate respiratory distress) Chest Common normals: inspection of chest normal Respiratory Common normals: abnormal respiratory effort (Moderate respiratory distress) Auscultation: rhonchi and diminished lung sounds Cardio Common normals: regular rate and regular rhythm GI Common normals: Normal to inspection, nondistended, normoactive bowel sounds present Back & Pelvis Other: Significant sacral decubitus, see pictures Extremity Common normals: normal to inspection and no clubbing, cyanosis or edema DS: Data Data Completed and Pending Labs on day of discharge: Labs from last 24 hours 07/31/24 07/31/24 07/31/24 16:44 16:41 11:26 WBC RBC Hgb Hct MCV MCH MCHC RDW Plt Count MPV Neut % (Auto) Lymph % (Auto) Lynn % (Auto) Eos % (Auto) Baso % (Auto) Neut # (Auto) Lymph # (Auto) Lynn # (Auto) Eos # (Auto) Baso # (Auto) Abs Immat Gran (auto) Imm/Tot Granulo (auto) Sodium Potassium Chloride Carbon Dioxide Anion Gap BUN Creatinine Est GFR ( Amer) Est GFR (Non-Af Amer) BUN/Creatinine Ratio Glucose Calcium Magnesium Total Bilirubin AST ALT Alkaline Phosphatase Troponin I High Sens C-Reactive Protein NT-Pro-B Natriuret Pep Total Protein Albumin Globulin Albumin/Globulin Ratio Specimen Source A.calcoaceticus-baumannii cmplx PCR Bacteroides fragilis Laina albicans (PCR) Laina auris (PCR) C. glabrata (PCR) C. krusei (PCR) C. parapsilosis (PCR) C. tropicalis (PCR) C. neoform/gattii (PCR) Enterobacterales (PCR) E. cloacae complex PCR Enterococc faecalis PCR Enterococc faecium PCR E. coli (PCR) H. influenzae (PCR) Klebsiella aerogenes (PCR) Klebsiella oxytoca PCR K. pneumoniae group (PCR) List. monocytogenes PCR N. meningitidis (PCR) Proteus spp. (copies/mL) Salmonella spp. (PCR) Serratia marcescens PCR Staphylococcus sp PCR Staph aureus (PCR) mecA/C & MREJ Resist Gene mecA/C-Methicil Resis Gene mcr-1 Colistin Res Gene PCR Staph epidermidis (PCR) Staph lugdunensis (TEM-PCR) S. maltophilia (PCR) Streptococcus sp PCR Strep agalactiae (PCR) Strep pneumoniae (PCR) S. pyogenes (PCR) P. aeruginosa (PCR) Brenna/B-Vanco Res Genes blaIMP Car res Gene PCR KPC (blaKPC) Detect PCR NDM (blaNDM) Detect PCR OXA-48 Carbapenem Resis Gene (PCR) blaVIM Car Res Gene PCR CTX-M ESBL (PCR) POC Glucose 64 L 48 L* 157 H 07/31/24 07/31/24 07/30/24 07:35 05:59 21:20 WBC 5.4 RBC 3.46 L Hgb 10.9 L Hct 31.3 L MCV 90.5 MCH 31.5 MCHC 34.8 RDW 14.2 Plt Count 158 MPV 9.0 L Neut % (Auto) 80.3 H Lymph % (Auto) 9.4 L Lynn % (Auto) 4.6 Eos % (Auto) 0.0 L Baso % (Auto) 0.4 Neut # (Auto) 4.4 Lymph # (Auto) 0.5 L Lynn # (Auto) 0.3 Eos # (Auto) 0.0 Baso # (Auto) 0.0 Abs Immat Gran (auto) 0.29 H Imm/Tot Granulo (auto) 5.3 H Sodium 136 Potassium 3.5 Chloride 99 Carbon Dioxide 31.6 Anion Gap 8.9 BUN 20.0 H Creatinine 0.40 L Est GFR ( Amer) >60 Est GFR (Non-Af Amer) >60 BUN/Creatinine Ratio 50.0 Glucose 71 L Calcium 8.1 L Magnesium 1.7 L Total Bilirubin 0.6 AST 24 ALT 49 Alkaline Phosphatase 84 Troponin I High Sens 13.4 C-Reactive Protein 11.49 H NT-Pro-B Natriuret Pep 179.0 Total Protein 5.3 L Albumin 1.7 L Globulin 3.6 Albumin/Globulin Ratio 0.5 Specimen Source A.calcoaceticus-baumannii cmplx PCR Bacteroides fragilis Laina albicans (PCR) Laina auris (PCR) C. glabrata (PCR) C. krusei (PCR) C. parapsilosis (PCR) C. tropicalis (PCR) C. neoform/gattii (PCR) Enterobacterales (PCR) E. cloacae complex PCR Enterococc faecalis PCR Enterococc faecium PCR E. coli (PCR) H. influenzae (PCR) Klebsiella aerogenes (PCR) Klebsiella oxytoca PCR K. pneumoniae group (PCR) List. monocytogenes PCR N. meningitidis (PCR) Proteus spp. (copies/mL) Salmonella spp. (PCR) Serratia marcescens PCR Staphylococcus sp PCR Staph aureus (PCR) mecA/C & MREJ Resist Gene mecA/C-Methicil Resis Gene mcr-1 Colistin Res Gene PCR Staph epidermidis (PCR) Staph lugdunensis (TEM-PCR) S. maltophilia (PCR) Streptococcus sp PCR Strep agalactiae (PCR) Strep pneumoniae (PCR) S. pyogenes (PCR) P. aeruginosa (PCR) Brenna/B-Vanco Res Genes blaIMP Car res Gene PCR KPC (blaKPC) Detect PCR NDM (blaNDM) Detect PCR OXA-48 Carbapenem Resis Gene (PCR) blaVIM Car Res Gene PCR CTX-M ESBL (PCR) POC Glucose 220 H 244 H 07/30/24 15:38 WBC RBC Hgb Hct MCV MCH MCHC RDW Plt Count MPV Neut % (Auto) Lymph % (Auto) Lynn % (Auto) Eos % (Auto) Baso % (Auto) Neut # (Auto) Lymph # (Auto) Lynn # (Auto) Eos # (Auto) Baso # (Auto) Abs Immat Gran (auto) Imm/Tot Granulo (auto) Sodium Potassium Chloride Carbon Dioxide Anion Gap BUN Creatinine Est GFR ( Amer) Est GFR (Non-Af Amer) BUN/Creatinine Ratio Glucose Calcium Magnesium Total Bilirubin AST ALT Alkaline Phosphatase Troponin I High Sens C-Reactive Protein NT-Pro-B Natriuret Pep Total Protein Albumin Globulin Albumin/Globulin Ratio Specimen Source Blood A.calcoaceticus-baumannii cmplx PCR Not detected Bacteroides fragilis Not detected Laina albicans (PCR) Not detected Laina auris (PCR) Not detected C. glabrata (PCR) Not detected C. krusei (PCR) Not detected C. parapsilosis (PCR) Not detected C. tropicalis (PCR) Not detected C. neoform/gattii (PCR) Not detected Enterobacterales (PCR) Not detected E. cloacae complex PCR Not detected Enterococc faecalis PCR Not detected Enterococc faecium PCR Not detected E. coli (PCR) Not detected H. influenzae (PCR) Not detected Klebsiella aerogenes (PCR) Not detected Klebsiella oxytoca PCR Not detected K. pneumoniae group (PCR) Not detected List. monocytogenes PCR Not detected N. meningitidis (PCR) Not detected Proteus spp. (copies/mL) Not detected Salmonella spp. (PCR) Not detected Serratia marcescens PCR Not detected Staphylococcus sp PCR Not detected Staph aureus (PCR) Not detected mecA/C & MREJ Resist Gene Not applicable mecA/C-Methicil Resis Gene Not applicable mcr-1 Colistin Res Gene PCR Not applicable Staph epidermidis (PCR) Not detected Staph lugdunensis (TEM-PCR) Not detected S. maltophilia (PCR) Not detected Streptococcus sp PCR Detected A* Strep agalactiae (PCR) Not detected Strep pneumoniae (PCR) Not detected S. pyogenes (PCR) Detected A* P. aeruginosa (PCR) Not detected Brenna/B-Vanco Res Genes Not applicable blaIMP Car res Gene PCR Not applicable KPC (blaKPC) Detect PCR Not applicable NDM (blaNDM) Detect PCR Not applicable OXA-48 Carbapenem Resis Gene (PCR) Not applicable blaVIM Car Res Gene PCR Not applicable CTX-M ESBL (PCR) Not applicable POC Glucose Preliminary micro results at discharge 07/30/24 16:10 Urine Culture - Preliminary Urine,Clean Catch Pending - Specimen sent to [facility] Discharge Plan Discharge Disposition: [facility] Condition: Fair
[2024-07-31 20:32] LABS: Glucometer 42 mg/dL (74-106)
[2024-07-31] MEDS: DEXTROSE 50 %-WATER 25 GM/50 ML SYRINGE IV (20:38)
[2024-07-31 21:13] LABS: Glucometer 161 mg/dL (74-106)
[2024-07-31] MEDS: ENSURE HP 237 ML LIQUID PO (21:41)
[2024-07-31] MEDS: PROSTAT 15 GM PROTEIN/100 CAL 30 ML LIQUID PACKET PO (21:41)
[2024-07-31] MEDS: GABAPENTIN 300 MG CAPSULE PO (21:41)
[2024-07-31] MEDS: JUVEN PACKET 1 PACKET PO (21:41)
--- NOTE | 2024-07-31 23:07 | PC.NURSE ---
Superior arrived for the patient. report given to them and pt was discharged at 0417. [facility]
== END 2024-07-31 22:57 | disposition short-term general hospital (02) | DRG 871 ==
LOC: ER 17:21 → MS 17:57
PROVIDERS: Emergency Medicine; Admitting Provider Family Medicine; Emergency Provider Family Medicine; PCP Family Medicine; Visit Provider Family Medicine
DX: A40.0 Sepsis due to streptococcus, group A (principal); L89.153 Pressure ulcer of sacral region, stage 3; N39.0 Urinary tract infection, site not specified; F32.1 Major depressive disorder, single episode, moderate; L03.317 Cellulitis of buttock; E87.1 Hypo-osmolality and hyponatremia; C34.90 Malignant neoplasm of unspecified part of unspecified bronchus or lung; D84.89 Other immunodeficiencies; N40.0 Benign prostatic hyperplasia without lower urinary tract symptoms; L89.890 Pressure ulcer of other site, unstageable; E11.65 Type 2 diabetes mellitus with hyperglycemia; R09.02 Hypoxemia; J44.9 Chronic obstructive pulmonary disease, unspecified; E83.42 Hypomagnesemia; D50.9 Iron deficiency anemia, unspecified; R65.20 Severe sepsis without septic shock; E11.42 Type 2 diabetes mellitus with diabetic polyneuropathy; Z87.891 Personal history of nicotine dependence; Z79.899 Other long term (current) drug therapy; Z79.4 Long term (current) use of insulin; Z79.84 Long term (current) use of oral hypoglycemic drugs
CPT/HCPCS: 36415; 71045; 72193; 80053; 81001; 82948; 83605; 83735; 83880; 84484; 85025; 85652; 86140; 87040; 87070; 87077; 87086; 87088; 87106; 87150; 87186; 87205; 93005; 93306; 94640; 94761; 96365; 97162; 99285; J1650; J2543; J3370; Q9967